=== PATIENT | male | born 1955 | race Caucasian/White ===

== ENCOUNTER 2018-08-14 16:07 | Emergency (ER) | payer OTHER ==
[2018-08-14 16:15] VITALS: BP 153/87; PULSE 70; TEMP 98.7; BMI 27.4
[2018-08-14] MEDS ORDERED: ALBUTEROL SO4 2.5/IPRATROPIUM 0.5 INH SOL 3 ML VIAL.NEB. NEB STA (16:49)
[2018-08-14] MEDS ORDERED: ALBUTEROL SO4 2.5/IPRATROPIUM 0.5 INH SOL 3 ML VIAL.NEB. NEB ONE (16:55)
--- NOTE | 2018-08-14 17:10 | PDOC ---
History of Present Illness - General Chief Complaint: Cold Symptoms Stated Complaint: Cold Symptoms Time Seen by Provider: 08/14/18 16:15 History Source: Patient Exam Limitations: No Limitations - History of Present Illness Initial Comments: 08/14/18 17:07 63 yr male history of HTN, DM, asthma, high cholesterol presents with 3 weeks cough getting worse with wheezing. no fever no chest pain no vomiting. 08/14/18 17:08 Past History - Past Medical History Allergies/Adverse Reactions: Allergies Allergy/AdvReac Type Severity Reaction Status Date / Time No Known Allergies Allergy Verified 08/14/18 16:10 Home Medications: Ambulatory Orders Albuterol 0.083% Nebulizer Donna [Ventolin 0.083% Nebulizer Soln -] 1 neb NEB Q4H #30 vial 08/14/18 Albuterol Sulfate Inhaler - [Ventolin HFA Inhaler -] 1 - 2 inh PO QID #1 inhaler 08/14/18 Azithromycin [Zithromax 250mg Tablets -] 250 mg PO UTDICT #6 tab 08/14/18 Prednisone [Deltasone] 40 mg PO DAILY #10 tablet 08/14/18 Asthma: Yes COPD: No Diabetes: Yes HTN: Yes Hypercholesterolemia: Yes - Suicide/Smoking/Psychosocial Hx Smoking History: Former smoker Have you smoked in the past 12 months: No Information on smoking cessation initiated: No Respiratory Specific PMHX - Complaint Specific PMHX Angina: No Bronchitis: Yes Pneumonia: No Pulmonary Embolus: No TB (Tuberculosis): No Review of Systems - Review of Systems Able to Perform ROS?: Yes Is the patient limited Slovenian proficient: No Constitutional: No: Symptoms Reported Respiratory: Yes: Cough *Physical Exam - Vital Signs Last Vital Signs Temp Pulse Resp BP Pulse Ox 98.7 F 70 18 153/87 98 08/14/18 16:12 08/14/18 16:12 08/14/18 16:12 08/14/18 16:12 08/14/18 16:12 - Physical Exam General Appearance: Yes: Nourished, Appropriately Dressed HEENT: positive: EOMI, KAYKAY, Normal ENT Inspection, TMs Normal, Pharynx Normal Neck: positive: Supple Respiratory/Chest: positive: Rhonchi, Wheezing. negative: Respiratory Distress , Accessory Muscle Use Cardiovascular: positive: Regular Rhythm, Regular Rate Gastrointestinal/Abdominal: positive: Normal Bowel Sounds, Soft Musculoskeletal: positive: Normal Inspection Extremity: positive: Normal Capillary Refill, Normal Inspection, Normal Range of Motion Integumentary: positive: Normal Color, Dry, Warm Neurologic: positive: Fully Oriented, Alert, Normal Mood/Affect, Normal Response , Motor Strength 01/25 ED Treatment Course - RADIOLOGY Radiology Studies Ordered: Category Date Time Status CHEST PA & LAT [RAD] Stat Radiology 08/14/18 16:51 Ordered - Medications Given in the ED: ED Medications Discontinued Medications Generic Name Dose Route Start Last Admin Trade Name Freq PRN Reason Stop Dose Admin Albuterol/Ipratropium 1 amp 08/14/18 16:49 08/14/18 16:57 Duoneb - NEB 08/14/18 16:50 1 amp Q15M STA Administration Medical Decision Making - Medical Decision Making 08/14/18 17:09 cc: cough 3 weeks getting worse productive cough with chest tight wheezing noted, used nebulizer at home no relief no fever no recent travel m chest feels tight CXR, nebulizers, re-eval *DC/Admit/Observation/Transfer Diagnosis at time of Disposition: Bronchitis - Discharge Dispostion Disposition: HOME Condition at time of disposition: Stable - Prescriptions Prescriptions: Albuterol 0.083% Nebulizer Donna [Ventolin 0.083% Nebulizer Soln -] 1 neb NEB Q4H #30 vial Albuterol Sulfate Inhaler - [Ventolin HFA Inhaler -] 1 - 2 inh PO QID #1 inhaler Azithromycin [Zithromax 250mg Tablets -] 250 mg PO UTDICT #6 tab Prednisone [Deltasone] 40 mg PO DAILY #10 tablet - Referrals Referrals: Azalea Garza MD [Primary Care Provider] - - Patient Instructions Printed Discharge Instructions: DI for Acute Bronchitis Additional Instructions: drink pleanty of fluids to stay well hydrated follow up with your doctor tomorrow or Saturday next dose of prednisone tomorrow morning use your nebulizer every 4hrs for the next 3 days while awake Return to ER for any worsening symptoms - Post Discharge Activity
[2018-08-14] MEDS ORDERED: predniSONE 20 MG TABLET (UD) PO STA (17:13)
[2018-08-14] MEDS ORDERED: predniSONE 20 MG TABLET (UD) ONE (17:17)
== END 2018-08-14 18:22 | disposition home or self-care (01) ==
LOC: JERFT 16:07
PROC: 3E0F7GC Introduction of Other Therapeutic Substance into Respiratory Tract, Via Natural or Artificial Opening (ICD-10-PCS; principal; 2018-08-14)
DX: J40 Bronchitis, not specified as acute or chronic (principal); J45.909 Unspecified asthma, uncomplicated; I10 Essential (primary) hypertension; E11.9 Type 2 diabetes mellitus without complications; E78.00 Pure hypercholesterolemia, unspecified
CPT/HCPCS: 71046-TC-FY; 99281-25